=== PATIENT | female | born 1980 | race Caucasian/White ===

== ENCOUNTER 2020-07-31 07:55 | Inpatient (IN) ==
[2020-07-31] MEDS ORDERED: OXYTOCIN 30 UNITS/500 ML BAG IV PRN ×3 (10:55→13:24)
--- NOTE | 2020-07-31 10:55 | Progress Note ---
Date of Service July 31, 2020 Assessment & Plan Admission and Anticipated Discharge Date Admission Date: July 31, 2020 Subjective Met pt and reviewed PNC Induction for GDMa2 on PM insulin bedside sono; vt VE; ft/thick,post Discussed floey bulb vrx Cytotec. risk and benefits discussed pt agreeable to blanco bulb Blanco placed in cervix w/o difficulty and 30 cc saline used will start low dose Pitocin as well Results & Data ([facility]) Vital Signs (Past 12 Hours) Vital Signs Temp Pulse Resp BP 07/31/20 08:51 36.6 C 16 07/31/20 08:06 77 132/79
[2020-07-31] MEDS ORDERED: PENICILLIN G POTASSIUM 6 MU in DEXTROSE 5% 250 ML IV STA (11:00)
[2020-07-31 11:18] LABS: Hematocrit (blood only) 34.9 % (37-47); Hemoglobin 11.7 g/dL (12.0-16.0); Mean Corpuscular Hemoglobin 30.9 pg (25-34); Mean Corpuscular Hgb Conc 33.5 g/dL (32-36); Mean Corpuscular Volume 92.1 fL (80-100); Mean Platelet Volume 11.6 fL (7.4-10.4); Platelet Count 161 K/uL (130-400); RDW Coefficient of Variation 14.2 % (11.5-14.5); RDW Standard Deviation 47.8 fL (36.4-46.3); Red Blood Count 3.79 M/uL (4.2-5.4); White Blood Count 6.47 K/uL (4.8-10.8)
[2020-07-31 11:41] LABS: Albumin Level 2.7 gm/dl (3.4-5.0); Calcium 9.1 mg/dl (8.5-10.1); Creatinine Clr Calc Pharmacy 156.3 ml/min; Est GFR (African American) 141.3; Est GFR (Non-African American) 121.9; Potassium 3.8 mmol/L (3.5-5.1)
[2020-07-31 11:44] LABS: Albumin Globulin Ratio 0.7 (0.9-2); Bilirubin,Total 0.5 mg/dl (0.2-1); Globulin 3.6 gm/dl (2.5-4.0); Total Protein 6.3 gm/dl (6.4-8.2)
[2020-07-31] MEDS: LACTATED RINGER'S 1,000 ML IV PRN (12:26)
[2020-07-31] MEDS: PENICILLIN G POTASSIUM 3 MU in DEXTROSE 5% 100 ML IV PRN (18:46)
[2020-07-31] MEDS ORDERED: FAMOTIDINE 40 MG TABLET PO ONE (19:30)
--- NOTE | 2020-07-31 21:14 | Progress Note ---
Date of Service July 31, 2020 Assessment & Plan Admission and Anticipated Discharge Date Admission Date: July 31, 2020 Subjective Pt doing well Induction for GDMA2 Pit: 20Mu since 18;00Hrs VE 3/50/-2 pt tolerates vag exam poorly plan epidural analgesia SROm Results & Data ([facility]) Vital Signs (Past 12 Hours) Vital Signs Temp Pulse Resp BP 07/31/20 19:05 36.7 C 18 07/31/20 19:00 76 131/81 07/31/20 18:59 72 140/76 07/31/20 17:34 73 129/75 07/31/20 15:44 36.4 C L 74 121/70 07/31/20 14:50 74 124/71 07/31/20 13:55 77 127/79 07/31/20 12:32 75 122/71 07/31/20 11:55 36.6 C 18
--- NOTE | 2020-07-31 21:28 | Progress Note ---
Date of Service July 31, 2020 Assessment & Plan Admission and Anticipated Discharge Date Admission Date: July 31, 2020 Subjective Pt decided against SROM Pitocin d/mini Expectant management for now will evaluate in AM Results & Data ([facility]) Vital Signs (Past 12 Hours) Vital Signs Temp Pulse Resp BP 07/31/20 19:05 36.7 C 18 07/31/20 19:00 76 131/81 07/31/20 18:59 72 140/76 07/31/20 17:34 73 129/75 07/31/20 15:44 36.4 C L 74 121/70 07/31/20 14:50 74 124/71 07/31/20 13:55 77 127/79 07/31/20 12:32 75 122/71 07/31/20 11:55 36.6 C 18
[2020-07-31] MEDS ORDERED: Nursing to Pharmacy Communication SCH (23:45)
--- NOTE | 2020-08-01 07:50 | History & Physical Report ---
Date of Service August 01, 2020 Assessment & Plan (1) Gestational diabetes mellitus (GDM) affecting second : 39-year-old -0-0-1 at 39 weeks and 2 days of gestation, induction of labor since yesterday with Chaudhari balloon and IV Pitocin Vital signs stable afebrile heart rate reassuring GBS positive Coronavirus testing was negative July 27 Cervix is favorable but had is high Discussed prostaglandin versus IV Pitocin and AROM. Patient desires IV Pitocin and then around. Patient desires to take shower and eat and then starts. All questions were answered. (2) GBS (group B Streptococcus carrier), +RV culture, currently : Admission and Anticipated Discharge Date Admission Date: July 31, 2020 History of Present Illness Primary Care Provider: Rigo Lindo MD Patient is a 39-year-old -0-0-1 at 39 weeks and 2 days of gestation who was admitted yesterday by Dr. Mcgregor for induction of labor at term for gestational diabetes, on insulin. She had the Chaudhari bulb placed with IV Pitocin which were DC'd last night. Her cervix was 3 to 4 cm and head was high and patient declined AROM. Patient slept all night and did not feel much contractions. She denies leakage of fluid or vaginal bleeding, she reports good movements. She denies any other medical problems. complications 1) GDAM2, on 14 units of insulin, last EFW was on 12/4, 6 lb 2) AMA, panorama testing was low risk, has not seen MFM. 3) GBS+ Allergies Allergy/AdvReac Type Severity Reaction Status Date / Time No Known Allergies Allergy Verified 07/31/20 08:42 Home Medications Medication Instructions Recorded Confirmed Type ibuprofen [Motrin IB] 600 mg PO Q6H PRN 04/27/19 04/27/19 History norethindrone-e.estradiol-iron 1 tab PO DAILY 04/27/19 04/27/19 History [Junel FE 08/23 ()] ferrous sulfate 325 mg PO DAILY 07/31/20 07/31/20 History insulin NPH isoph U-100 human 14 unit SUBCUT QPM 07/31/20 07/31/20 History [Novolin N Flexpen] vit-ferrous sulfat-FA 1 tab PO DAILY 07/31/20 07/31/20 History [] Patient History Medical History Lupus erythematosus Surgical History H/O breast biopsy Social History Smoking Status: Never smoker Hx Alcohol Use: No Hx Substance Use: No Preferred Language: Telugu Communication Ability: Effective 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 Beliefs That Will Affect Care: None marital status: Current Living Situation: Family Current Living Situation Comment: and daughter Other Information That Helps Us Care for You: No Feels Safe at Home: Yes Safety Concerns: Feels Safe At This Time Assistive Devices: None OB History ft IN 2013, 8 LB SMALL [employer] History No h/o STD Review of Systems All systems reviewed & are unremarkable except as noted in HPI & below Physical Exam Constitutional: WD/WN, vitals as above well developed and well nourished Comfortable, NAD Gastrointestinal (Abdomen): normal bowel sounds, soft, nontender, no hepatosplenomegaly (Gravid, Migule 8 lb) Genitourinary: Manual OB Exam: + cervical dilation 4 cm, + cervical effacement 30% and + station high OB Exam Monitor Tracing: + external uterine monitor used and + category I Results & Data ([facility]) Vital Signs (Past 12 Hours) Vital Signs Pulse BP 08/01/20 03:53 74 123/73 Laboratory Results Lab Results 07/31/20 07/31/20 07/31/20 Range/Units 11:08 11:08 11:18 WBC 6.47 (4.8-10.8) K/uL RBC 3.79 L (4.2-5.4) M/uL Hgb 11.7 L (12.0-16.0) g/dL Hct 34.9 L (37-47) % MCV 92.1 (80-100) fL MCH 30.9 (25-34) pg MCHC 33.5 (32-36) g/dL RDW Std Deviation 47.8 H (36.4-46.3) fL RDW Coeff of Luz 14.2 (11.5-14.5) % Plt Count 161 (130-400) K/uL MPV 11.6 H (7.4-10.4) fL Sodium 138 (136-145) mmol/L Potassium 3.8 (3.5-5.1) mmol/L Chloride 107 (98-107) mmol/L Carbon Dioxide 23 (21-32) mmol/L Anion Gap 8.0 (3-11) BUN 10 (7-18) mg/dl Creatinine 0.50 L (0.6-1.2) mg/dl Est Cr Clr Drug Dosing 156.3 ml/min Est GFR ( Amer) 141.3 Est GFR (Non-Af Amer) 121.9 BUN/Creatinine Ratio 20.0 (10-20) Glucose 80 (70-99) mg/dl POC Glucose 83 (70-99) mg/dl Calcium 9.1 (8.5-10.1) mg/dl Total Bilirubin 0.5 (0.2-1) mg/dl AST 19 (15-37) U/L ALT 26 (12-78) U/L Alkaline Phosphatase 133 H (45-117) U/L Total Protein 6.3 L (6.4-8.2) gm/dl Albumin 2.7 L (3.4-5.0) gm/dl Globulin 3.6 (2.5-4.0) gm/dl Albumin/Globulin Ratio 0.7 L (0.9-2) 07/31/20 07/31/20 08/01/20 Range/Units 15:12 19:06 03:56 WBC (4.8-10.8) K/uL RBC (4.2-5.4) M/uL Hgb (12.0-16.0) g/dL Hct (37-47) % MCV (80-100) fL MCH (25-34) pg MCHC (32-36) g/dL RDW Std Deviation (36.4-46.3) fL RDW Coeff of Luz (11.5-14.5) % Plt Count (130-400) K/uL MPV (7.4-10.4) fL Sodium (136-145) mmol/L Potassium (3.5-5.1) mmol/L Chloride (98-107) mmol/L Carbon Dioxide (21-32) mmol/L Anion Gap (3-11) BUN (7-18) mg/dl Creatinine (0.6-1.2) mg/dl Est Cr Clr Drug Dosing ml/min Est GFR ( Amer) Est GFR (Non-Af Amer) BUN/Creatinine Ratio (10-20) Glucose (70-99) mg/dl POC Glucose 131 H 107 H 83 (70-99) mg/dl Calcium (8.5-10.1) mg/dl Total Bilirubin (0.2-1) mg/dl AST (15-37) U/L ALT (12-78) U/L Alkaline Phosphatase (45-117) U/L Total Protein (6.4-8.2) gm/dl Albumin (3.4-5.0) gm/dl Globulin (2.5-4.0) gm/dl Albumin/Globulin Ratio (0.9-2)
[2020-08-01] MEDS ORDERED: OXYTOCIN 30 UNITS/500 ML BAG IV PRN ×2 (08:06→20:10)
[2020-08-01] MEDS: LACTATED RINGER'S 1,000 ML IV PRN ×2 (09:28→16:26)
[2020-08-01] MEDS: PENICILLIN G POTASSIUM 3 MU in DEXTROSE 5% 100 ML IV PRN ×2 (12:09→16:18)
--- NOTE | 2020-08-01 14:09 | Obstetrical Progress Note ---
Date of Service August 01, 2020 Assessment & Plan Admission and Anticipated Discharge Date Admission Date: July 31, 2020 Subjective Patient is reevaluated She feels ctxs more often but not painful yet Pain 3/10 VSS Afebrile FHR reassuring VE; 4/ 50%/ -2, AROM'ed, clear fluid Pitocin is at 14 miu/min Continue to monitor closely Epidural when patient desires Results & Data ([facility]) Vital Signs (Past 12 Hours) Vital Signs Temp Pulse Resp BP 08/01/20 13:07 37.7 C H 72 20 130/75 08/01/20 10:44 76 130/76 08/01/20 09:29 77 121/68 08/01/20 08:04 36.5 C 61 20 121/78 08/01/20 03:53 74 123/73
[2020-08-01] MEDS ORDERED: CALCIUM CARBONATE 500 MG CHEWABLE TAB PO PRN (15:16)
[2020-08-01] MEDS ORDERED: ePHEDrine sulfate 50 MG/ML AMP ONE (15:33)
[2020-08-01] MEDS ORDERED: SODIUM CHLORIDE 0.9% INJ 10 ML VIAL ONE (15:33)
[2020-08-01] MEDS ORDERED: fentaNYL citrate 100 MCG/2 ML VIAL ONE (15:34)
[2020-08-01] MEDS ORDERED: BUPIVACAINE 0.25% 30 ML VIAL ONE (15:34)
[2020-08-01] MEDS ORDERED: fentaNYL 2MCG/ML ROPIVACAINE 1.25MG/ML 100 ML BAG EPI ONE (15:34)
[2020-08-01] MEDS ORDERED: NALOXONE HCL 1 MG in SODIUM CHLORIDE 0.9% 1000ML 1,000 ML IV PRN (15:56)
[2020-08-01] MEDS ORDERED: ONDANSETRON INJ 2 MG/ML 2 ML VIAL IV PRN (15:56)
[2020-08-01] MEDS ORDERED: fentaNYL 2MCG/ML ROPIVACAINE 1.25MG/ML 100 ML BAG EPI PRN (15:56)
[2020-08-01] MEDS ORDERED: NALOXONE HCL 0.4 MG/1 ML VIAL/CARP IV PRN (15:56)
[2020-08-01] MEDS ORDERED: ePHEDrine sulfate 50 MG/ML AMP IV PRN (15:56)
[2020-08-01] MEDS ORDERED: diphenhydrAMINE 50 MG/ML VIAL IV PRN (15:56)
--- NOTE | 2020-08-01 15:59 | Anesthesiology Consultation ---
Date of Service August 01, 2020 Covid 19 negative on 07/27/20. Assessment & Plan Chart Review Chart Review: Patient NOT seen in Pre Admission Testing and Acceptable Risk for Labor Epidural Consults Requested none ASA ASA3 Proposed Anesthesia Anesthesia Type: Labor Epidural and CSE Risk / Benefits Reviewed With: PT / POA / Parent / Guardian, Accepts Plan and Informed Consent Obtained History Height/Weight Height: 5 ft 3 in Weight: 85.275 kg Allergies Allergy/AdvReac Type Severity Reaction Status Date / Time No Known Allergies Allergy Verified 07/31/20 08:42 Medications Home Medications Medication Instructions Recorded Confirmed Last Taken ibuprofen [Motrin IB] 600 mg PO Q6H PRN 04/27/19 04/27/19 Unknown norethindrone-e.estradiol-iron 1 tab PO DAILY 04/27/19 04/27/19 04/27/19 09:00 [Junel FE 08/23 ()] ferrous sulfate 325 mg PO DAILY 07/31/20 07/31/20 07/31/20 insulin NPH isoph U-100 human 14 unit SUBCUT QPM 07/31/20 07/31/20 07/30/20 [Novolin N Flexpen] vit-ferrous sulfat-FA 1 tab PO DAILY 07/31/20 07/31/20 07/31/20 [] Active Medications Generic Name Dose Route Start Last Admin Trade Name Freq PRN Reason Stop Dose Admin Calcium Carbonate 1,000 mg 08/01/20 15:16 08/01/20 15:24 Calcium Carbonate 500 Mg Chewable Tab PO 08/31/20 15:15 1,000 mg Q8 PRN Administration Indigestion Penicillin G Potassium 3 mu/ 106 mls @ 100 mls/hr 07/31/20 10:55 08/01/20 13:09 Dextrose IV 08/10/20 10:54 Infused Q4H PRN Infusion Give until delivery Lactated Ringer's 1,000 mls @ 125 mls/hr 07/31/20 10:55 08/01/20 15:29 Lr IV 08/02/20 10:54 999 mls/hr .Q8H PRN Infusion L&D Protocol Protocol Oxytocin 30 units in 500 mls @ 0 mls/hr 07/31/20 11:52 07/31/20 21:25 Pitocin IV 08/02/20 11:51 0 units/hr .Q0M PRN 0 mls/hr Labor Induction/Augmentation Titration Protocol 0 UNITS/HR Oxytocin 30 units in 500 mls @ 16 mls/hr 08/01/20 08:06 08/01/20 14:37 Pitocin IV 08/03/20 08:05 0.96 units/hr .Q24H PRN 16 mls/hr Labor Induction/Augmentation Titration Protocol 0.96 UNITS/HR NPO Date Last Intake of Fluids: 08/01/20 Time Last Intake of Fluids: 15:00 Date Last Intake of Solids: 08/01/20 Time Last Intake of Solids: 12:00 Past Medical History Medical History (Updated 08/01/20 @ 09:51 by Alan Aggarwal MD) Gestational diabetes mellitus (GDM) affecting second Lupus erythematosus Exercise / Class Metabolic Activity II 4-5 Yardwork/Stairs/Walk up hill Past Surgical History Surgical History H/O breast biopsy Past Anesthesia History No Hx of Anesthesia Complications and No Family Hx of Anesthesia Complications History of PONV No Hx of PONV and No Hx of Motion Sickness Social History Smoking Status: Never smoker Hx Alcohol Use: No Hx Substance Use: No Review of Systems no chest pain or sob Physical Exam Vital Signs Last Vital Signs Temp 37.7 C H 08/01/20 13:07 Pulse 65 08/01/20 15:55 Resp 20 08/01/20 13:07 BP 125/75 08/01/20 15:55 Pulse Ox 97 08/01/20 15:54 ENMT Mouth: no TMJ abnormality Thyromental Distance: > or= 3.5 Finger Breadths Mallampati Class: II Neck normal visual inspection Respiratory normal respiratory effort Auscultation: lungs clear to auscultation bilaterally Cardiovascular Rate/Rhythm: regular rate and regular rhythm Musculoskeletal Spine: normal cervical ROM Neurologic moves all extremities Psychiatric Orientation: alert and oriented x 3 Testing Laboratory Results 07/31/20 11:08 07/31/20 11:08 08/01/20 08/01/20 08/01/20 15:53 12:04 08:10 POC Glucose 86 81 88
--- NOTE | 2020-08-01 17:23 | Obstetrical Progress Note ---
Date of Service August 01, 2020 Assessment & Plan Admission and Anticipated Discharge Date Admission Date: July 31, 2020 Subjective Patient received epidural and feels comfortable now. Fingerstick glucose levels have been within normal limits. The last 1 was 84 mg/dL Fourth dose of penicillin was given. heart rate had been category 1 Contractions every 3 to 5 minutes, Pitocin is at 18 milliunits/min Vaginal exam, cervix is 5 cm dilated, 70% effaced, head at -2 station, anterior fontanelle is at 2 o'clock position Plan to continue to monitor, change position and anticipate spontaneous vaginal delivery. Results & Data ([facility]) Vital Signs (Past 12 Hours) Vital Signs Temp Pulse Resp BP Pulse Ox 08/01/20 17:19 61 98 08/01/20 17:14 66 97 08/01/20 17:09 61 96 08/01/20 17:05 66 115/61 08/01/20 17:04 66 96 08/01/20 16:59 61 96 08/01/20 16:54 60 96 08/01/20 16:49 66 96 08/01/20 16:48 57 L 106/58 L 08/01/20 16:44 60 96 08/01/20 16:43 68 113/55 L 08/01/20 16:39 64 97 08/01/20 16:37 62 103/54 L 08/01/20 16:34 65 110/56 L 98 08/01/20 16:29 60 97 08/01/20 16:25 65 112/55 L 08/01/20 16:24 66 124/58 L 97 08/01/20 16:21 69 118/53 L 08/01/20 16:19 64 124/56 L 97 08/01/20 16:17 62 124/60 08/01/20 16:16 64 131/73 08/01/20 16:14 74 94 08/01/20 16:09 79 97 08/01/20 16:04 70 98 08/01/20 15:59 63 98 08/01/20 15:55 65 125/75 08/01/20 15:54 60 97 08/01/20 15:26 63 130/79 08/01/20 13:07 37.7 C H 72 20 130/75 08/01/20 10:44 76 130/76 08/01/20 09:29 77 121/68 08/01/20 08:04 36.5 C 61 20 121/78
--- NOTE | 2020-08-01 19:01 | Obstetrical Progress Note ---
Date of Service August 01, 2020 Assessment & Plan Admission and Anticipated Discharge Date Admission Date: July 31, 2020 Subjective Patient is reevaluated She feels mild pain and pressure VE: 10/100%/0, +1 with ctx No urge to push FHR categ I Continue to monitor closely Will start pushing Results & Data ([facility]) Vital Signs (Past 12 Hours) Vital Signs Temp Pulse Resp BP Pulse Ox 08/01/20 18:54 70 98 08/01/20 18:51 69 129/63 08/01/20 18:49 69 98 08/01/20 18:44 60 97 08/01/20 18:39 69 96 08/01/20 18:37 63 115/60 08/01/20 18:34 70 96 08/01/20 18:29 65 96 08/01/20 18:24 62 97 08/01/20 18:20 64 103/54 L 08/01/20 18:19 62 97 08/01/20 18:14 64 96 08/01/20 18:09 67 96 08/01/20 18:05 60 106/58 L 08/01/20 18:04 68 96 08/01/20 17:59 63 96 08/01/20 17:54 61 96 08/01/20 17:51 60 109/61 08/01/20 17:49 69 97 08/01/20 17:44 62 95 08/01/20 17:39 61 97 08/01/20 17:37 64 101/57 L 08/01/20 17:34 78 96 08/01/20 17:29 67 97 08/01/20 17:24 65 97 08/01/20 17:20 62 130/68 08/01/20 17:19 61 98 08/01/20 17:14 66 97 08/01/20 17:09 61 96 08/01/20 17:05 37.0 C 66 20 115/61 08/01/20 17:04 66 96 08/01/20 16:59 61 96 08/01/20 16:54 60 96 08/01/20 16:49 66 96 08/01/20 16:48 57 L 106/58 L 08/01/20 16:44 60 96 08/01/20 16:43 68 113/55 L 08/01/20 16:39 64 97 08/01/20 16:37 62 103/54 L 08/01/20 16:34 65 110/56 L 98 08/01/20 16:29 60 97 08/01/20 16:25 65 112/55 L 08/01/20 16:24 66 124/58 L 97 08/01/20 16:21 69 118/53 L 08/01/20 16:19 64 124/56 L 97 08/01/20 16:17 62 124/60 08/01/20 16:16 64 131/73 08/01/20 16:14 74 94 08/01/20 16:09 79 97 08/01/20 16:04 70 98 08/01/20 15:59 63 98 08/01/20 15:55 65 125/75 08/01/20 15:54 60 97 08/01/20 15:51 36.9 C 20 08/01/20 15:26 63 130/79 08/01/20 13:57 37.2 C 20 08/01/20 13:07 37.7 C H 72 20 130/75 08/01/20 10:44 76 130/76 08/01/20 09:29 77 121/68 08/01/20 08:04 36.5 C 61 20 121/78
[2020-08-01] MEDS ORDERED: MINERAL OIL 30 ML UDC ONE (19:22)
[2020-08-01] MEDS ORDERED: ERYTHROMYCIN OP OINT 1 GM PKT ONE (19:44)
[2020-08-01] MEDS ORDERED: miSOPROStoL 200 MCG TAB PR ONE (20:10)
[2020-08-01] MEDS ORDERED: HYDROCORTISONE ACETATE 25 MG SUPP PR PRN (20:10)
[2020-08-01] MEDS ORDERED: ACETAMINOPHEN 325 MG TAB PO PRN (20:10)
[2020-08-01] MEDS ORDERED: bisacodyL 10 MG SUPP PR PRN (20:10)
[2020-08-01] MEDS ORDERED: BENZOCAINE 20% AER SPR 82.5 GM CAN EXT PRN (20:10)
[2020-08-01] MEDS ORDERED: SUPERCREAM 0.870% 15 GM JAR EXT PRN (20:10)
--- NOTE | 2020-08-01 20:56 | Anesthesia Procedure Note ---
Date of Service August 01, 2020 Anesthesia Post Epidural Note Vital Signs Vital Signs: Temp Pulse Resp BP Pulse Ox 36.8 C 71 18 135/66 96 08/01/20 20:05 08/01/20 20:50 08/01/20 20:21 08/01/20 20:50 08/01/20 20:04 Notes Mental Status: alert / awake / arousable and participated in evaluation Nausea / Vomiting: adequately controlled Pain: adequately controlled Airway Patency, RR, SpO2: stable & adequate BP & HR: stable & adequate Hydration State: stable & adequate Neuraxial Anesthesia: was administered and sensory block is resolving Anesthetic Complications: no major complications apparent and Pt Satisfied with anesthetic care Epidural: Removed without complications and With tip intact
[2020-08-01] MEDS: DOCUSATE SODIUM 100 MG CAP PO SCH (21:37)
[2020-08-02] MEDS: IBUPROFEN 600 MG TAB PO PRN ×5 (04:00→20:19)
--- NOTE | 2020-08-02 04:00 | Delivery Summary ---
DATE OF OPERATION: 08/01/2020 TIME OF DELIVERY OF BABY: 19:51 p.m. DETAILS OF DELIVERY: The patient was found to be fully dilated and desired to push. She pushed for about half an hour and delivered the head without difficulty. Shoulders were delivered with minimal traction. Baby was handed off to the mother. She was crying and moving actively and her mouth and nose were suctioned. Cord was clamped x2 and cut at 1 minute delay. Cord blood was obtained. Vagina and perineum were checked for lacerations. There were first-degree lacerations on the right upper labia and in posterior fourchette. Those were repaired with 3-0 Vicryl with [id number] stitches. Excellent hemostasis was achieved. Rest of the vagina and perineum were intact. Placenta was found to be in the vagina, delivered spontaneous as intact and complete. Uterus was explored, found to be empty. Lower segment was cleared of all clots and debris. Fundus was firm. EBL was 250 mL. Mom and baby tolerated the procedure well. Sponge, lap, needle count was correct x2. Baby was a viable female infant, Apgars 9/9, weight is 3723 gr. No complications happened and I was present during whole procedure. I attest to the content of the Intraoperative Record and any orders documented therein. Any exceptions are noted below. MTDD
[2020-08-02 06:14] LABS: Hematocrit (blood only) 33.8 % (37-47); Hemoglobin 11.5 g/dL (12.0-16.0); Mean Corpuscular Hemoglobin 31.5 pg (25-34); Mean Corpuscular Volume 92.6 fL (80-100); Mean Platelet Volume 12.1 fL (7.4-10.4); Platelet Count 154 K/uL (130-400); RDW Coefficient of Variation 14.3 % (11.5-14.5); RDW Standard Deviation 48.5 fL (36.4-46.3); Red Blood Count 3.65 M/uL (4.2-5.4); White Blood Count 11.02 K/uL (4.8-10.8)
[2020-08-02 06:36] LABS: Albumin Level 2.3 gm/dl (3.4-5.0); Calcium 8.4 mg/dl (8.5-10.1); Creatinine Clr Calc Pharmacy 137.1 ml/min; Est GFR (African American) 135.3; Est GFR (Non-African American) 116.8; Potassium 3.5 mmol/L (3.5-5.1)
[2020-08-02 06:39] LABS: Albumin Globulin Ratio 0.7 (0.9-2); Bilirubin,Total 0.6 mg/dl (0.2-1); Globulin 3.3 gm/dl (2.5-4.0); Total Protein 5.6 gm/dl (6.4-8.2)
[2020-08-02] MEDS ORDERED: FERROUS SULFATE 325 MG TAB PO SCH (08:00)
[2020-08-02] MEDS ORDERED: PRENATAL VITAMIN 1 TAB PO SCH (08:00)
[2020-08-02] MEDS: DOCUSATE SODIUM 100 MG CAP PO SCH ×2 (08:00→20:21)
--- NOTE | 2020-08-02 08:08 | Obstetrical Progress Note ---
Date of Service August 02, 2020 Assessment & Plan Admission and Anticipated Discharge Date Admission Date: July 31, 2020 Subjective PPD#1 passing gas +BM tolerating diet out of bed Physical Exam Constitutional: WD/WN, vitals as above comfortable abdomen soft and non- tender fundus firm no edema neg Tara's for d/c tonight after 24 hours Results & Data ([facility]) Vital Signs (Past 12 Hours) Vital Signs Temp Pulse Pulse Resp BP BP Pulse Ox 08/02/20 03:50 37 C 76 18 100/63 08/01/20 23:50 36.7 C 73 18 122/71 08/01/20 22:05 37.0 C 78 16 143/73 H 08/01/20 21:50 76 137/76 08/01/20 21:35 81 16 144/73 H 08/01/20 21:20 80 134/71 08/01/20 21:09 74 16 126/64 08/01/20 20:50 71 18 135/66 08/01/20 20:35 74 16 142/77 H 08/01/20 20:21 83 18 137/67 08/01/20 20:05 36.8 C 70 20 125/73 08/01/20 20:04 71 96 Laboratory Results 07/31/20 07/31/20 07/31/20 11:08 11:08 11:18 WBC 6.47 RBC 3.79 L Hgb 11.7 L Hct 34.9 L MCV 92.1 MCH 30.9 MCHC 33.5 RDW Std Deviation 47.8 H RDW Coeff of Luz 14.2 Plt Count 161 MPV 11.6 H Sodium 138 Potassium 3.8 Chloride 107 Carbon Dioxide 23 Anion Gap 8.0 BUN 10 Creatinine 0.50 L Est Cr Clr Drug Dosing 156.3 Est GFR ( Amer) 141.3 Est GFR (Non-Af Amer) 121.9 BUN/Creatinine Ratio 20.0 Glucose 80 POC Glucose 83 Fasting Glucose Calcium 9.1 Total Bilirubin 0.5 AST 19 ALT 26 Alkaline Phosphatase 133 H Total Protein 6.3 L Albumin 2.7 L Globulin 3.6 Albumin/Globulin Ratio 0.7 L 07/31/20 07/31/20 08/01/20 15:12 19:06 03:56 WBC RBC Hgb Hct MCV MCH MCHC RDW Std Deviation RDW Coeff of Luz Plt Count MPV Sodium Potassium Chloride Carbon Dioxide Anion Gap BUN Creatinine Est Cr Clr Drug Dosing Est GFR ( Amer) Est GFR (Non-Af Amer) BUN/Creatinine Ratio Glucose POC Glucose 131 H 107 H 83 Fasting Glucose Calcium Total Bilirubin AST ALT Alkaline Phosphatase Total Protein Albumin Globulin Albumin/Globulin Ratio 08/01/20 08/01/20 08/01/20 08:10 12:04 15:53 WBC RBC Hgb Hct MCV MCH MCHC RDW Std Deviation RDW Coeff of Luz Plt Count MPV Sodium Potassium Chloride Carbon Dioxide Anion Gap BUN Creatinine Est Cr Clr Drug Dosing Est GFR ( Amer) Est GFR (Non-Af Amer) BUN/Creatinine Ratio Glucose POC Glucose 88 81 86 Fasting Glucose Calcium Total Bilirubin AST ALT Alkaline Phosphatase Total Protein Albumin Globulin Albumin/Globulin Ratio 08/01/20 08/02/20 08/02/20 17:14 05:56 05:56 WBC 11.02 H RBC 3.65 L Hgb 11.5 L Hct 33.8 L MCV 92.6 MCH 31.5 MCHC 34.0 RDW Std Deviation 48.5 H RDW Coeff of Luz 14.3 Plt Count 154 MPV 12.1 H Sodium 141 Potassium 3.5 Chloride 110 H Carbon Dioxide 23 Anion Gap 8.0 BUN 7 Creatinine 0.57 L Est Cr Clr Drug Dosing 137.1 Est GFR ( Amer) 135.3 Est GFR (Non-Af Amer) 116.8 BUN/Creatinine Ratio Glucose POC Glucose 84 Fasting Glucose 92 Calcium 8.4 L Total Bilirubin 0.6 AST 25 ALT 21 Alkaline Phosphatase 113 Total Protein 5.6 L Albumin 2.3 L Globulin 3.3 Albumin/Globulin Ratio 0.7 L
[2020-08-02] MEDS ORDERED: MEASLES, MUMPS & RUBELLA VIRUS VIAL SQ ONE (09:00)
[2020-08-02] MEDS ORDERED: DIPHTHERIA/TETANUS/PERTUSSIS 0.5 ML SYR/VIAL IM ONE (09:00)
[2020-08-02] MEDS ORDERED: bisacodyL 5 MG TABEC PO SCH (20:00)
== END 2020-08-02 21:20 | disposition home or self-care (01) | DRG 807 ==
LOC: 4S1 07:55 → 4S2 08-01 22:40